=== PATIENT | male | born 1995 | race Caucasian/White ===

== ENCOUNTER 2017-11-01 22:43 | Emergency (ER) | payer BC, OTHER ==
[~2017-11-01] VITALS: Ht 177.8 cm; Wt 117.5 kg
[2017-11-01 22:48] VITALS: Ht 177.8 cm; Wt 117.5 kg
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
[2017-11-02 01:08] VITALS: BP 143/84; PULSE 90; TEMP 36.8; O2SAT 97
--- NOTE | 2017-11-02 06:36 | DIAGNOSTIC IMAGING REPORT ---
CHEST ONE VIEW PORTABLE HISTORY: 21 years-old Male chest pain acute atypical chest pain COMPARISON: Chest radiograph 08/28/2016, chest CT 11/02/2017 TECHNIQUE: Portable AP view of the chest FINDINGS: Cardiomediastinal and hilar silhouettes are within normal limits. There is no pneumothorax, pleural effusion, focal airspace consolidation or overt pulmonary edema. Bones of the chest appear grossly intact IMPRESSION: Normal chest radiograph. The above report was generated using voice recognition software. It may contain grammatical, syntax or spelling errors. Electronically signed by: Teodoro Cooper M.D. 11/02/2017 6:35 AM Dictated Date/Time: 11/02/2017 6:33 AM
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
== END 2017-11-02 01:08 | disposition home or self-care (01) ==
LOC: EDBD 22:43 → C.EDC 22:45
DX: S20.219A Contusion of unspecified front wall of thorax, initial encounter (principal); R51 Headache; G47.30 Sleep apnea, unspecified; Z88.1 Allergy status to other antibiotic agents; V47.9XXA Unspecified car occupant injured in collision with fixed or stationary object in traffic accident, initial encounter

== ENCOUNTER 2017-12-15 22:02 | Emergency (ER) | payer BC, OTHER ==
[~2017-12-15] VITALS: Ht 177.8 cm; Wt 112.6 kg
[2017-12-15 22:08] VITALS: TEMP 36.8; Ht 177.8 cm; Wt 112.6 kg
[2017-12-15] MEDS ORDERED: ONDANSETRON 4MG OD TAB PO STA (22:25)
[2017-12-15] MEDS ORDERED: ACETAMINOPHEN 325 MG TAB PO STA (22:25)
[2017-12-15] MEDS ORDERED: ACET-1256 PO (22:46)
--- NOTE | 2017-12-15 23:10 | EMERGENCY ROOM VISIT NOTE ---
History Report prepared by Christophe: Lexy Sheldon Under the Supervision of: Dr. Toy Shen M.D. First contact with patient: 22:21 Chief Complaint: NAUSEA Stated Complaint: NAUSEA,WEAK,LIGHT HEADED History of Present Illness The patient is a 21 year old male who presents to the Emergency Room with complaints of persistent general nausea since last night. He notes that his nausea was worsened this morning. He notes that he slept all day. He reports vomiting. He notes loss of appetite. He denies any fevers. He notes positive sick contacts with his coworkers. He reports that he was sick the other day. He denies any abdominal pain. He denies any underlying medical problems. He denies any sore throat or stuffy nose. He has not eaten anything today, though he drank a bottle of Gatorade. He denies any history of HTN. Source of History: patient Onset: since last night Position: other (general ) Quality: other (nausea) Timing: other (persistent) Associated Symptoms: No fevers, No sorethroat Note: He denies any sore throat. He notes loss of appetite. Review of Systems See HPI for pertinent positives & negatives. A total of 10 systems reviewed and were otherwise negative. Past Medical & Surgical Medical Problems: (1) Sleep apnea Family History Patient reports no known family medical history. Social History Smoking Status: Never Smoker Alcohol Use: none Drug Use: none Marital Status: single Housing Status: lives with family Occupation Status: student Current/Historical Medications Scheduled Acetaminophen (Tylenol), 1,000 MG PO PRN UD Ondasetron Odt (Zofran Odt), 4-8 MG SL Q6H Allergies Coded Allergies: Cephalexin (Verified Allergy, Intermediate, HIVES, 11/01/17) Physical Exam Vital Signs Date Time Temp Pulse Resp B/P (MAP) Pulse Ox O2 Delivery O2 Flow Rate FiO2 12/15/17 23:06 68 155/88 73 165/100 75 151/92 12/15/17 22:59 59 20 136/85 97 Room Air 12/15/17 22:08 36.8 79 18 187/84 97 Room Air Physical Exam GENERAL: Patient is in no acute distress. HEENT: No acute trauma, normocephalic atraumatic, mucous membranes moist, no nasal congestion, no scleral icterus. No throat erythema or exudate. NECK: No stridor, no adenopathy, no meningismus, trachea is midline. LUNGS: Clear to auscultation bilaterally, no wheeze, no rhonchi, breath sounds equal. HEART: Subtle systolic murmur, regular rate and rhythm. ABDOMEN: Soft, nontender, bowel sounds positive, no hernias, no peritonitis. EXTREMITIES: No cyanosis or edema, full range of motion of all the joints without pain or difficulty, no signs for acute trauma. NEUROLOGIC: Oriented x 3, no acute motor or sensory deficits, no focal weakness. SKIN: No rash, no jaundice, no diaphoresis. Medical Decision & Procedures Laboratory Results Test 12/15/17 23:12 Bedside Glucose 127 mg/dl (70-99) Laboratory results reviewed by me. Medications Administered Medications (Trade) Dose Ordered Sig/Theo Route Start Time Stop Time Status Last Admin Dose Admin Ondansetron HCl (Zofran Odt) 4 mg NOW STAT PO 12/15/17 22:25 12/15/17 22:27 DC 12/15/17 22:32 4 MG Acetaminophen (Tylenol Tab) 650 mg NOW STAT PO 12/15/17 22:25 12/15/17 22:27 DC 12/15/17 22:32 650 MG ED Course 2224: The patient was evaluated in room A11B. A complete history and physical exam was performed. 2225: Ordered Tylenol 650 mg PO and Zofran 4 mg PO 2322: The patient's orthostatic vital signs are negative. 0000: Ordered Zofran 1 homepack PO 0001: I reassessed the patient at this time. He is feeling better. He drank a Gatorade and a half. I discussed the results and treatment plan with the patient. I answered all pertaining questions that he had. He expressed understanding and verbalized agreement. The patient will be discharged home. Medical Decision The patient is a 21 year old male who presents to the ED with complaints of nausea. Differential diagnoses considered include dehydration, viral illness, foodborne illness, bowel obstruction, PNA, and pharyngitis. The patient presents with some nausea and vomiting earlier today. He is not febrile, he has no pain. There has been no diarrhea. He was able to drink Gatorade today before presenting to the ER. He has felt fatigued and he states he has slept most of the day. The patient was not toxic or febrile. There was no peritonitis. He was given oral Tylenol and oral Zofran. I did check a BSG, this was about 120. Orthostatic vital signs did not show evidence for significant dehydration. The patient was able to drink a bottle and a half of Gatorade. He looks well, he is not toxic. He is being discharged with Zofran for nausea, a bland diet was suggested. He was encouraged to return if worsening. This illness is likely viral and/or foodborne. Medication Reconcilliation Current Medication List: was personally reviewed by me Blood Pressure Screening Patient's blood pressure: Elevated blood pressure Blood pressure disposition: Referred to PCP Impression Primary Impression: Nausea and vomiting Scribe Attestation The scribe's documentation has been prepared under my direction and personally reviewed by me in its entirety. I confirm that the note above accurately reflects all work, treatment, procedures, and medical decision making performed by me. Departure Information Dispostion Home / Self-Care Prescriptions Ondasetron Odt (ZOFRAN ODT) 4 Mg Tab 4-8 MG SL Q6H for Nausea, #10 TAB Prov: Toy Shen M.D. 12/16/17 Referrals No Doctor, Assigned (PCP) Forms HOME CARE DOCUMENTATION FORM, IMPORTANT VISIT INFORMATION Patient Instructions My [facility] Additional Instructions bland diet---crackers, soup, toast, gatorade, rice lots of fluid rest tylenol for pain zofran 1-2 tab every 6 hours for nausea return if worsening or have fever or abdominal pain
[2017-12-16] MEDS ORDERED: ONDANSETRON HOME PACK 4MG OD TAB PO ONE
[2017-12-16] MEDS ORDERED: ONDA4TAB10 SL (00:02)
[2017-12-16 00:32] VITALS: BP 131/75; PULSE 61; O2SAT 97
== END 2017-12-16 00:38 | disposition home or self-care (01) ==
LOC: C.EDB 22:03 → C.EDA 12-16 00:38
DX: R11.2 Nausea with vomiting, unspecified (principal); Z88.1 Allergy status to other antibiotic agents